=== PATIENT | female | born 1965 | race Two or more races ===

== ENCOUNTER 2018-02-26 12:35 | Emergency (ER) | payer MEDICAID ==
[~2018-02-26] VITALS: Ht 167.6 cm; Wt 110.7 kg
[2018-02-26 12:35] VITALS: BP 121/52
[~2018-02-26 12:35] MED LIST: AZIT250T PO; GUAI100S23 PO; [UNRECOGNIZED DRUG - CODE] PO
[2018-02-26] MEDS ORDERED: NAPROXEN 250 MG TABLET PO ONE (13:00)
[2018-02-26] MEDS ORDERED: NAPROXEN 250 MG TABLET ONE (13:11)
== END 2018-02-26 13:55 | disposition home or self-care (01) ==
LOC: ER 12:41
DX: S62.512A Displaced fracture of proximal phalanx of left thumb, initial encounter for closed fracture (principal); X58.XXXA Exposure to other specified factors, initial encounter; Y93.89 Activity, other specified; Y92.89 Other specified places as the place of occurrence of the external cause; Y99.8 Other external cause status
CPT/HCPCS: 29125; 73140; 99284; A4606; Z7610

== ENCOUNTER 2020-01-03 13:35 | Emergency (ER) | payer MEDICAID ==
[~2020-01-03] VITALS: Ht 170.2 cm; Wt 116.6 kg
--- NOTE | 2020-01-03 13:38 | NUR ---
CAME IN FOR DIZZINESS "FEELS LIKE THE ROOM IS SPINNING". STARTED AROUND 9AM. TO ER BED 9, HOOKED TO MONITOR, CHANGED TO HOSP GOWN, WARM BLANKET PROVIDED, PATIENT AAOx4, BREATHING EVEN AND UNLABORED. AWAITING MD VELAZQUEZ
[2020-01-03] MEDS ORDERED: diphenhydrAMINE HCL 50 MG/ML VIAL ONE (14:28)
[2020-01-03] MEDS ORDERED: ONDANSETRON HCL/PF 4 MG/2 ML VIAL ONE (14:29)
[2020-01-03] MEDS ORDERED: diphenhydrAMINE HCL 50 MG/ML VIAL IV ONE (14:30)
[2020-01-03] MEDS ORDERED: ONDANSETRON HCL/PF 4 MG/2 ML VIAL IVP ONE (14:30)
[2020-01-03] MEDS ORDERED: IV NS 0.9% 1,000 ML BAG IV ONE (14:30)
[2020-01-03 14:34] LABS: BASOPHILS # (AUTO) 0.1 /CMM (0.0-0.2); BASOPHILS % (AUTO) 1.2 % (0.0-2.0); EOSINOPHILS % (AUTO) 0.3 % (0.0-6.0); HEMATOCRIT 41 % (33-45); HEMOGLOBIN 13.5 g/dL (11.5-14.8); LYMPHOCYTES # (AUTO) 0.8 /CMM (0.8-4.8); LYMPHOCYTES % (AUTO) 11.6 % (20.0-44.0); MEAN CORPUSCULAR HGB CONC 33 g/dl (31.0-36.0); MEAN CORPUSCULAR VOLUME 90 fL (82-100); MONOCYTES # (AUTO) 0.4 /CMM (0.1-1.30); MONOCYTES % (AUTO) 5.5 % (2.0-12.0); NEUTROPHILS # (AUTO) 5.8 /CMM (1.8-8.9); NEUTROPHILS % (AUTO) 81.4 % (43.0-81.0); PLATELET COUNT (AUTO) 333 /CMM (150-450); RED BLOOD CELL COUNT(AUTO) 4.54 MIL/uL (4.0-5.2); WHITE BLOOD COUNT (AUTO) 7.1 K/uL (4.3-11.0)
[2020-01-03 14:46] LABS: CALCIUM, SERUM 9.3 mg/dL (8.5-10.1); CREATININE 0.6 mg/dL (0.6-1.3); POTASSIUM 3.5 mmol/L (3.5-5.1)
[2020-01-03 14:52] LABS: ALBUMIN 3.7 g/dL (3.4-5.0); BILIRUBIN,DIRECT 0.1 mg/dL (0.0-0.2); BILIRUBIN,TOTAL 0.7 mg/dL (0.2-1.0); TOTAL PROTEIN, SERUM 8.3 g/dL (6.4-8.2)
--- NOTE | 2020-01-03 15:01 | NUR ---
WHEELED OUT VIA RNEY FOR CT SCAN
--- NOTE | 2020-01-03 15:39 | NUR ---
PATIENT STATES "FEELING BETTER, NO SPINNING WHEN I OPEN MY EYES", MADE MD AWARE
[2020-01-03 16:58] VITALS: BP 141/73
--- NOTE | 2020-01-03 16:58 | NUR ---
IV removed. Catheter intact and site benign. Pressure and 4x4 applied to site. No bleeding noted.Patient discharged to home in stable condition. Written and verbal after care instructions given. Patient verbalizes understanding of instruction.
== END 2020-01-03 17:13 | disposition home or self-care (01) ==
LOC: ER 13:35
DX: R42 Dizziness and giddiness (principal); R51 Headache; R11.2 Nausea with vomiting, unspecified
CPT/HCPCS: 36415; 70450; 71045; 80048; 80076; 85025; 93005; 96361; 96374; 96375; 99285; J1200; J2405; J7030